=== PATIENT | female | born 1990 | race Caucasian/White ===

== ENCOUNTER 2017-04-25 09:11 | Emergency (ER) | payer OTHER ==
[2017-04-25 09:26] VITALS: BP 110/66
--- NOTE | 2017-04-25 09:46 | UC ---
Skin Complaint HPI - HPI Summary HPI Summary: WOKE UP 2 DAYS AGO WITH DIFFUSE ITCHY RED RASH. THIS IS THE 4TH TIME IN 2 YEARS THIS HAS HAPPENED. PT DENIES ANY NEW LOTIONS, SOAPS, DETERGENTS, MAKE-UP, CLOTHES, FOODS OR OTHER EXPOSURES. WENT HIKING THIS PAST WEEKEND. PT HAS SEEN DERM AND DIRECTOR OF SUSTAINABILITY PROGRAMS FOR PREVIOUS EPISODES AND NO DIAGNOSIS. THIS IS THE WORST IT HAS BEEN. ALSO HAS LEFT UPPER EYELID SWELLING. NO TONGUE/LIP SWELLING. NO RESPIRATORY INVOLVEMENT. - History of Current Complaint Chief Complaint: UCRash Time Seen by Provider: 04/25/17 09:34 Stated Complaint: HIVES Hx Obtained From: Patient Hx Last Menstrual Period: apr 03 Onset/Duration: Sudden Onset, Lasting Days, Still Present Timing: Constant Onset Severity: Moderate Current Severity: Moderate Pain Intensity: 0 Pain Scale Used: 0-10 Numeric Location: Diffuse Character: Pruritus, Redness Aggravating: Touch Alleviating: Nothing Associated Signs & Symptoms: Positive: Rash. Negative: Difficulty Breathing, Fever, Cough, Wheezing, Throat Tightening, Tenderness, Red Streaks, Joint Swelling Related History: Possible Reaction to: Environmental Exposure - Allergy/Home Medications Allergies/Adverse Reactions: Allergies Allergy/AdvReac Type Severity Reaction Status Date / Time Penicillins [PCN] Allergy Rash Verified 04/24/17 11:39 Review of Systems Constitutional: Negative Skin: Rash Respiratory: Negative Cardiovascular: Negative Gastrointestinal: Negative All Other Systems Reviewed And Are Negative: Yes PMH/Surg Hx/FS Hx/Imm Hx Previously Healthy: Yes - Surgical History Surgical History: Yes Surgery Procedure, Year, and Place: moles removed, throid bx 04/24/17 - Family History Known Family History: Negative: Blood Disorder - Social History Alcohol Use: Occasionally Substance Use Type: None Smoking Status (MU): Never Smoked Tobacco Physical Exam Triage Information Reviewed: Yes Appearance: Well-Appearing, No Pain Distress, Well-Nourished Vital Signs: Initial Vital Signs Temp 99.0 F 04/25/17 09:17 Pulse 75 04/25/17 09:17 Resp 18 04/25/17 09:17 BP 110/66 04/25/17 09:17 Pulse Ox 98 04/25/17 09:17 Vital Signs Reviewed: Yes Eyes: Positive: Conjunctiva Clear, Other: - MILD LEFT UPPER EYELID EDEMA ENT: Positive: Hearing grossly normal, Pharynx normal, TMs normal Neck: Positive: Supple, Nontender, No Lymphadenopathy Respiratory Exam: Normal Cardiovascular: Positive: Pulses Normal Abdomen Description: Positive: Soft Musculoskeletal: Positive: No Edema Neurological: Positive: Alert Psychological: Positive: Age Appropriate Behavior Skin: Positive: rashes - DIFFUSE ERYTHEMATOUS RASH OVER HEAD, FACE, NECK, TRUNK , UPPER EXTREMITIES, LOWER EXTREMITIES. SCATTERED AREAS OF STREAK LIKE RASH Course/Dx - Diagnoses Provider Diagnoses: CONTACT DERMATITIS Discharge - Discharge Plan Condition: Stable Disposition: HOME Prescriptions: predniSONE TAB* [Deltasone TAB*] 50 mg PO DAILY #7 tab Patient Education Materials: Contact Dermatitis (ED) Referrals: [facility] [Primary Care Provider] - If Needed Edelmira Oliva MD [Medical Doctor] - As Soon As Possible Additional Instructions: USE DAILY MOISTURIZING LOTION AVOID HEAT AND HOT WATER TAKE OTC ANTIHISTAMINE DAILY (CLARITIN (LORATADINE), ZYRTEC (CETIRIZINE) OR CHEY (FEXOFENADINE) IN THE MORNING, 25-50MG BENADRYL AT NIGHT) DO NOT SCRATCH KEEP COOL, CLEAN AND DRY TAKE EITHER BENDRYL OR YOUR HYDROXYZINE AT NIGHT - NOT BOTH CALL YOUR DIRECTOR OF SUSTAINABILITY PROGRAMS FOR A FOLLOW-UP APPT [facility]. GO TO THE ER WITHOUT FAIL IF YOU DEVELOP SHORTNESS OF BREATH, CHEST TIGHTNESS, TONGUE/LIP SWELLING OR ANY OTHER CONCERNING SYMPTOMS.
== END 2017-04-25 09:56 | disposition home or self-care (01) ==
LOC: UCEAST 09:11
DX: L25.9 Unspecified contact dermatitis, unspecified cause (principal); Z88.0 Allergy status to penicillin
CPT/HCPCS: 99212; G0463

== ENCOUNTER 2018-12-28 01:45 | Emergency (ER) | payer OTHER ==
--- NOTE | 2018-12-28 03:01 | ED ---
Lower Extremity - HPI Summary HPI Summary: Pt is a 28 y/o F presenting to the ED with a chief complaint of pain. The pain is mainly in her R inner thigh from her groin to her medial knee, and intermittently in her R elbow and forearm. At dinner, she was restless and wanted to leave, and the pain came on just after dinner. She went to sleep thinking it would go away, but woke up around 0030 crying d/t the pain. She reports slight nausea. She denies fever, cough, vomiting, diarrhea, or urinary sx. She notes hx of tx for thyroid CA including resection and radiation. - History of Current Complaint Chief Complaint: EDGeneral Stated Complaint: "R SIDED BODY PAIN" PER PT Time Seen by Provider: 12/28/18 02:47 Hx Obtained From: Patient Hx Last Menstrual Period: apr 03 Mechanism Of Injury: Unknown Onset/Duration: Hours Severity Initially: Moderate Severity Currently: Mild Pain Intensity: 3 Pain Scale Used: 0-10 Numeric Timing: Constant, Lasting Hours Location: Other - R inner thigh and R arm Character Of Pain: Aching Associated Signs And Symptoms: Negative: Fever Aggravating Factor(s): Nothing Alleviating Factor(s): Nothing Able to Bear Weight: Yes - Allergies/Home Medications Allergies/Adverse Reactions: Allergies Allergy/AdvReac Type Severity Reaction Status Date / Time Penicillins Allergy Rash Verified 12/28/18 01:51 PMH/Surg Hx/FS Hx/Imm Hx Previously Healthy: Yes Endocrine/Hematology History: Denies: Hx Diabetes Cardiovascular History: Denies: Hx Hypertension History: Denies: Hx Renal Disease - Cancer History Cancer Type, 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 Negative: Vomiting, Diarrhea Positive: no symptoms reported Positive: Myalgia All Other Systems Reviewed And Are Negative: Yes Physical Exam - Summary Physical Exam Summary: Appearance: Well-appearing, Well-nourished, lying in bed comfortably Skin: Warm, dry, no obvious rash Eyes: sclera anicteric, no conjunctival pallor ENT: mucous membranes moist, pharynx appears normal Neck: Supple, nontender Respiratory: Clear to auscultation, no signs of respiratory distress Cardiovascular: Normal S1, S2. No murmurs. Normal distal pulses in tibial and radial bilaterally. Abdomen: Soft, nontender, normal active bowel sounds present Musculoskeletal: in the RLE there is no edema, erythema, or focal tenderness. There is good ROM in her hips and knees. Neurological: A&Ox3, awake and alert, mentation is normal, speech is fluent and appropriate Psychiatric: affect is normal, does not appear anxious or depressed Triage Information Reviewed: Yes Vital Signs On Initial Exam: Initial Vitals Temp Pulse Resp BP Pulse Ox 98.6 F 98 16 128/79 98 12/28/18 01:48 12/28/18 01:48 12/28/18 01:48 12/28/18 01:48 12/28/18 01:48 Vital Signs Reviewed: Yes Diagnostics - Vital Signs Vital Signs Temp Pulse Resp BP Pulse Ox 12/28/18 01:48 98.6 F 98 16 128/79 98 - Laboratory Lab Statement: Any lab studies that have been ordered have been reviewed, and results considered in the medical decision making process. Lower Extremity Course/Dx - Course Course Of Treatment: Pt is a 28 y/o F presenting to the ED with a chief complaint of pain. She went to sleep thinking it would go away, but woke up around 0030 crying d/t the pain in her inner R thigh and R arm. She reports slight nausea. She denies fever, cough, vomiting, diarrhea, or urinary sx. She notes hx of tx for thyroid CA including resection and radiation. The pt's physical exam is not notable for any abnormalities. In the RLE, there is no edema, erythema, or focal tenderness. There is good ROM in the pt's hips and knees. She will be d/c'ed with a dx of R thigh pain, and she is stable and agreeable with this plan. - Diagnoses Provider Diagnoses: Right thigh pain Discharge - Sign-Out/Discharge Documenting (check all that apply): Patient Departure Patient Received Moderate/Deep Sedation with Procedure: No - Discharge Plan Condition: Stable Disposition: HOME Patient Education Materials: Leg Pain (ED) Referrals: Bre Gerard DO [Primary Care Provider] - Additional Instructions: If the pain worsens during the day, especially if there is redness or swelling, come back and we will do an ultrasound. - Billing Disposition and Condition Condition: STABLE Disposition: Home - Attestation Statements Document Initiated by Scribe: Yes Documenting Scribe: Sirisha Person Provider For Whom Yulisa is Documenting (Include Credential): Ayden Corona MD. Scribe Attestation: Sirisha Pulido, ronnieed for Ayden Corona MD. on 01/01/19 at 0408. Scribe Documentation Reviewed: Yes Provider Attestation: The documentation as recorded by the Sirisha shah accurately reflects the service I personally performed and the decisions made by Ayden acosta MD. Status of Scribe Document: Viewed
[2018-12-28 03:06] VITALS: BP 119/68
== END 2018-12-28 03:07 | disposition home or self-care (01) ==
LOC: ED 01:45
DX: M79.651 Pain in right thigh (principal); R11.0 Nausea; Z85.850 Personal history of malignant neoplasm of thyroid; Z92.21 Personal history of antineoplastic chemotherapy; Z88.0 Allergy status to penicillin
CPT/HCPCS: 99282